=== PATIENT | female | born 1970 | race Caucasian/White ===

== ENCOUNTER 2019-01-16 14:47 | Emergency (ER) | payer OTHER ==
--- NOTE | 2019-01-16 15:03 | ER Document Report ---
ED Medical Screen (RME) - General Chief Complaint: Abnormal Lab Results Stated Complaint: ABNORMAL LABS Time Seen by Provider: 01/16/19 14:59 Mode of Arrival: Ambulatory Information source: Patient Notes: Patient presents to the emergency department with complaints of abnormal labs. Reports she had labs drawn at [facility] on Monday. She is being worked up because she is very tired. She was called and told to come to the emergency department. Has a history of low iron. Reports hemoglobin was 7.5. Reports history of heavy menses. Last emesis was at the end of December. Denies fever vomiting diarrhea. I have greeted and performed a rapid initial assessment of this patient. A comprehensive ED assessment and evaluation of the patient, analysis of test results and completion of the medical decision making process will be conducted by additional ED providers. Dictation of this chart was performed using voice recognition software; therefore, there may be some unintended grammatical e rrors. TRAVEL OUTSIDE OF THE [place] IN LAST 30 DAYS: No - Related Data Allergies/Adverse Reactions: No Known Allergies Allergy (Unverified 01/16/19 14:48) Past Medical History Skin Medical History: Comment Only Hx MRSA - MRSA 03/25/08 BREAST Physical Exam - Vital signs Vitals: Temp Pulse Resp BP Pulse Ox 99.2 F 99 16 183/95 H 100 01/16/19 14:54 01/16/19 14:54 01/16/19 14:54 01/16/19 14:54 01/16/19 14:54 Course - Vital Signs Vital signs: Temp Pulse Resp BP Pulse Ox 99.2 F 99 16 183/95 H 100 01/16/19 14:54 01/16/19 14:54 01/16/19 14:54 01/16/19 14:54 01/16/19 14:54
[2019-01-16 15:47] LABS: ABSOLUTE BASOPHILS # (AUTO) 0.1 10^3/uL (0.0-0.2); ABSOLUTE EOSINOPHILS # (AUTO) 0.1 10^3/uL (0.0-0.6); ABSOLUTE LYMPHOCYTES (AUTO) 2.3 10^3/uL (0.5-4.7); ABSOLUTE MONOCYTES (AUTO) 0.6 10^3/uL (0.1-1.4); ABSOLUTE NEUT (AUTO) 3.3 10^3/uL (1.7-8.2); BASOPHILS % (AUTO) 1.2 % (0-2); EOSINOPHILS % (AUTO) 1.6 % (0-6); HEMATOCRIT 26.6 % (36.0-47.0); MEAN CORPUSCULAR HEMOGLOBIN 17.8 pg (27.0-33.4); MONOCYTES % (AUTO) 8.8 % (3-13); PLATELET COUNT 377 10^3/uL (150-450); RED BLOOD COUNT 4.48 10^6/uL (3.72-5.28); RED CELL DISTRIBUTION WIDTH 19.4 % (11.5-14.0); SEGMENTED NEUTROPHILS % (AUTO) 52.4 % (42-78); TOTAL CELLS COUNTED % (AUTO) 100 %; WHITE BLOOD COUNT 6.3 10^3/uL (4.0-10.5)
[2019-01-16 15:49] LABS: MEAN CORPUSCULAR VOLUME 59 fl (80-97)
[2019-01-16 16:03] LABS: ANISOCYTOSIS 2+; HYPOCHROMASIA 4+; OVALOCYTES 1+; PLATELET COMMENT ADEQUATE; POIKILOCYTOSIS 1+; TEAR DROP CELLS SLIGHT
[2019-01-16 16:07] LABS: APPEARANCE,URINE SLIGHTLY-CLOUDY; BILIRUBIN,URINE NEGATIVE (NEGATIVE); COLOR,URINE YELLOW; GLUCOSE, URINE NEGATIVE (NEGATIVE); KETONES,URINE NEGATIVE (NEGATIVE); LEUKOCYTE ESTERASE,URINE TRACE (NEGATIVE); NITRITE,URINE NEGATIVE (NEGATIVE); PROTEIN,URINE NEGATIVE (NEGATIVE); URINE SPECIFIC GRAVITY 1.012; UROBILINOGEN,URINE NEGATIVE mg/dL (<2.0)
[2019-01-16 16:08] LABS: ALANINE AMINOTRANSFERASE 26 U/L (9-52); ALBUMIN 3.8 g/dL (3.5-5.0); ALKALINE PHOSPHATASE 58 U/L (38-126); ANION GAP 8 (5-19); ASPARTATE AMINO TRANSFERASE 23 U/L (14-36); BILIRUBIN,DIRECT 0.2 mg/dL (0.0-0.4); BILIRUBIN,TOTAL 0.2 mg/dL (0.2-1.3); BLOOD UREA NITROGEN 13 mg/dL (7-20); CALCIUM 9.4 mg/dL (8.4-10.2); CARBON DIOXIDE 27 mmol/L (22-30); CHLORIDE 105 mmol/L (98-107); GLUCOSE 83 mg/dL (75-110); POTASSIUM 4.1 mmol/L (3.6-5.0); SODIUM 140.2 mmol/L (137-145); TOTAL PROTEIN 6.7 g/dL (6.3-8.2)
--- NOTE | 2019-01-16 17:35 | ER Document Report ---
ED General - General Chief Complaint: Abnormal Lab Results Stated Complaint: ABNORMAL LABS Time Seen by Provider: 01/16/19 14:59 Primary Care Provider: CRISPIN JOHNSON MD [ACTIVE STAFF] - Follow up tomorrow Mode of Arrival: Ambulatory Notes: Patient is here because she was found to have a low hemoglobin blood work drawn by her primary care provider Monday. She is been feeling very tired and weak recently and she had the blood work drawn looking for a cause. Patient has a history of low hemoglobins which she says normally run in the 9 -10 area. Has never had to have a blood transfusion. Patient has no unusual loss of blood. Denies having any black stools. Denies having any blood in her stools. She still has menstrual cycle and her last one ended on December 27. She says the fi rst couple of days or so of her periods are very heavy. No bleeding since this last period stopped. Patient denies any shortness of breath or difficulty breathing. Also denies any chest pains. Otherwise very healthy. TRAVEL OUTSIDE OF THE [place] IN LAST 30 DAYS: No - Related Data Allergies/Adverse Reactions: No Known Allergies Allergy (Unverified 01/16/19 14:48) Past Medical History - General Information source: Patient - Social History Smoking Status: Current Every Day Smoker Chew tobacco use (# tins/day): No Frequency of alcohol use: None Drug Abuse: None Family History: Reviewed & Not Pertinent Patient has suicidal ideation: No Patient has homicidal ideation: No - Past Medical History Cardiac Medical History: Reports: Hx Hypertension Skin Medical History: Comment Only Hx MRSA - MRSA 03/25/08 BREAST Review of Systems - Review of Systems Notes: CONSTITUTIONAL : Denies fever. Has been feeling generally weak and tired for s everal weeks. CARDIOVASCULAR: Denies chest pain. RESPIRATORY: Denies cough, chest congestion, or shortness of breath. GASTROINTESTINAL: Denies abdominal pain or nausea, vomiting, or diarrhea. GENITOURINARY: Denies difficulty or painful urinating, urinary frequency, blood in urine. Physical Exam - Vital signs Vitals: Temp Pulse Resp BP Pulse Ox 99.2 F 99 16 183/95 H 100 01/16/19 14:54 01/16/19 14:54 01/16/19 14:54 01/16/19 14:54 01/16/19 14:54 Interpretation: Hypertensive Notes: PHYSICAL EXAMINATION: Mildly hypertensive. GENERAL: Well-appearing, no acute distress. HEAD: Atraumatic, normocephalic. NECK: Normal range of motion, supple. LUNGS: Breath sounds clear and equal bilaterally. HEART: Regular rate and rhythm without murmurs heard. ABDOMEN: Soft, nontender. No guarding or rebound or masses felt. Course - Re-evaluation Re-evalutation: 01/16/19 18:14 Patient's hemoglobin here tonight is 8.0, and by that criteria alone, patient does not qualify to be given blood transfusions. I spoke with body trimmer upholsterer and we both agreed the patient did not need to be transfused today. He said that he could evaluate her in his office. He asked that we have lab studies drawn such as iron level, iron binding capacity, vitamin B12, folate, and ferritin levels. - Vital Signs Vital signs: Temp Pulse Resp BP Pulse Ox 98.2 F 99 15 168/95 H 100 01/16/19 17:52 01/16/19 14:54 01/16/19 17:52 01/16/19 17:52 01/16/19 17:52 - Laboratory Result Diagrams: 01/16/19 15:25 01/16/19 15:25 Laboratory results interpreted by me: 01/16/19 01/16/19 15:25 15:25 Hgb 8.0 L Hct 26.6 L MCV 59 L MCH 17.8 L MCHC 30.0 L RDW 19.4 H Urine Blood SMALL H Ur Leukocyte Esterase TRACE H Discharge - Discharge Clinical Impression: Anemia Condition: Stable Disposition: HOME, SELF-CARE Additional Instructions: Anemia, Iron Deficiency You have anemia (a lower than normal amount of red blood cells). Our tests show it's due to lack of iron in your body. In infants and children, iron deficiency is usually due to lack of iron in the diet. In adults, it's most often caused by blood loss (heavy periods or intestinal bleeding) or by . If the cause of iron deficiency is not clear, we evaluate for hidden intestinal bleeding. Another possible cause is failure to absorb iron properly. Iron-deficiency is treated with iron supplements. Iron pills can upset your stomach and cause constipation. Taking it with food decreases nausea. Expect the stool to become darker (but not black). Taking iron with a juice high in vitamin C (orange juice, tomato juice) increases absorption. You can increase your dietary iron by eating liver, oysters, and lean beef; wheat germ, peas, and lentils; and molasses, dried prunes, spinach, and broccol i. Contact the doctor at once if you note black or tarry-looking stools, bloody vomiting, shortness of breath, chest pain, or faintness. Your hemoglobin here today was 8.0. We have ordered studies to try to determine the cause of your anemia. I have spoken with a local body trimmer upholsterer, Dr. Johnson, who will follow up on this patient's labs and condition as an outpatient in his office. FOLLOW-UP CARE: If you have been referred to a physician for follow-up care, call the physician s office for an appointment as you were instructed or within the next two days. If you experience worsening or a significant change in your symptoms, notify the physician immediately or return to the Emergency Department at any time for re-evaluation. Forms: Return to Work Referrals: CRISPIN JOHNSON MD [ACTIVE STAFF] - Follow up tomorrow
[2019-01-16 17:55] VITALS: BP 168/95
[2019-01-16 18:10] LABS: IRON(TIBC) 15.2 ug/dL (37-170)
== END 2019-01-16 17:56 | disposition home or self-care (01) ==
LOC: ER 14:47
DX: D64.9 Anemia, unspecified (principal); R53.1 Weakness; F17.200 Nicotine dependence, unspecified, uncomplicated; I10 Essential (primary) hypertension
CPT/HCPCS: 36415; 80053; 81001; 81025; 82728; 83540; 83550; 85025; 99283

== ENCOUNTER 2019-01-25 08:09 | Outpatient (CLI) | payer OTHER ==
[~2019-01-25 08:09] MED LIST: IRON DEXTRAN COMPLEX 25 MG in SYRINGE, DISPOSABLE, 1 EACH IV PRN; IRON DEXTRAN COMPLEX 775 MG in NORMAL SALINE 500 ML IV PRN; NORMAL SALINE 250 ML IV PRN
[2019-01-25 09:28] VITALS: BP 139/75
== END 2019-01-25 13:09 | disposition home or self-care (01) ==
LOC: II 08:09 → 5TH 08:12 → II 13:09
PROVIDERS: ATTEND Internal Medicine
DX: D50.8 Other iron deficiency anemias (principal); K90.9 Intestinal malabsorption, unspecified
CPT/HCPCS: 96365; 96366; 96374; J1750; J7040; J3490

== ENCOUNTER 2019-02-01 08:00 | Outpatient (CLI) | payer OTHER ==
[~2019-02-01 08:00] MED LIST changes: -IRON DEXTRAN COMPLEX 25 MG in SYRINGE, DISPOSABLE, 1 EACH IV PRN; -IRON DEXTRAN COMPLEX 775 MG in NORMAL SALINE 500 ML IV PRN; +IRON DEXTRAN COMPLEX 800 MG in NORMAL SALINE 500 ML IV PRN
[2019-02-01 08:53] VITALS: BP 149/83
== END 2019-02-01 11:37 | disposition home or self-care (01) ==
LOC: II 08:00 → 5TH 08:01 → II 11:37
PROVIDERS: ATTEND Internal Medicine
PROC: 3E033GC Introduction of Other Therapeutic Substance into Peripheral Vein, Percutaneous Approach (ICD-10-PCS; principal; 2019-02-01)
DX: D50.8 Other iron deficiency anemias (principal); K90.9 Intestinal malabsorption, unspecified
CPT/HCPCS: 96365; 96366; J1750; J7040

== ENCOUNTER → 2019-05-01 | Outpatient (CLI) | payer OTHER ==
--- NOTE | 2019-05-01 08:29 | WOMENS IMAGING REPORT ---
EXAM DESCRIPTION: TRANSVAGINAL ULTRASOUND COMPLETED DATE/TIME: 05/01/2019 7:35 am REASON FOR STUDY: N92.0 EXCESSIVE AND FREQUENT MENSTRUATION WITH REGULAR CYCLE N92.0 EXCESSIVE AND FREQUENT MENSTRUATION WITH REGULAR CYCLE COMPARISON: None. TECHNIQUE: Dynamic and static grayscale images acquired of the pelvis via transvaginal approach and recorded on PACS. Additional selected color Doppler and spectral images recorded. LIMITATIONS: None. FINDINGS: UTERUS: There is a small uterine fibroid measured 2.3 x 1.7 x 2.2 cm. ENDOMETRIAL STRIPE: Slightly thickened measured 1.4 cm. CERVIX: No nabothian cysts. RIGHT OVARY AND DOPPLER: Normal size. No worrisome masses. Normal arterial vascular flow without evid ence for torsion. LEFT OVARY AND DOPPLER: Normal size. No worrisome masses. Normal arterial vascular flow without evide nce for torsion. There is a simple 2.1 x 1.1 x 1.4 cm cyst. FREE FLUID: None noted. OTHER: No other significant finding. MEASUREMENTS: UTERUS: 9.8 x 5.5 x 6.7 cm. ENDOMETRIAL STRIPE: 1.4 cm. RIGHT OVARY: 3.6 x 2.6 x 3.9 cm. LEFT OVARY: 4.5 x 2.2 x 2.9 cm. IMPRESSION: Small uterine fibroid. Small left ovarian cyst. Slightly thickened and heterogeneous e ndometrium measured at 1.4 cm. This is nonspecific. TECHNICAL DOCUMENTATION: JOB ID: [id number] [employer]- All Rights Reserved Rev-01/19 Reading location - IP/workstation name: [email or web address]
== END ==
LOC: WI 06:54
PROVIDERS: ATTEND Nurse Practitioner Family
DX: N92.0 Excessive and frequent menstruation with regular cycle (principal)
CPT/HCPCS: 76830